=== PATIENT | male | born 2000 | race Caucasian/White ===

== ENCOUNTER 2019-04-26 22:18 | Emergency (ER) | payer OTHER ==
[2019-04-26] MEDS ORDERED: Ibuprofen 800 MG Tab PO ONE (22:55)
[2019-04-26] MEDS ORDERED: Gabapentin 100 MG Cap PO ONE (22:55)
--- NOTE | 2019-04-26 22:58 | EDM.PDOC ---
ED HPI GENERAL MEDICAL PROBLEM - General Chief Complaint: Back Pain or Injury Stated Complaint: BACK AND LEG PAIN NERVE DAMAGE FROM PREVIOUS SURGE Time Seen by Provider: 04/26/19 22:38 Source of Information: Reports: Patient History Limitations: Reports: No Limitations - History of Present Illness INITIAL COMMENTS - FREE TEXT/NARRATIVE: 18 y/o M with hx prior back injury as a child with subsequent lumbar fusion presents with low back pain radiating to his legs. States he gets similar episodes occasionally but they usually pass within a few days. This time around he's had pain for about 5 days. He's been taking APAP for pain with no relief. He also states he had a large leftover supply of narcotics after his surgery which he had been using intermittently for severe pain, but is now recently out of these meds. Denies daily use. Pain is mid low back and radiates to his legs. It is the radiating pain that bothers him the most, keeps him up at night. Not positional. No weakness or numbness. Pain is currently moderate. No recent trauma, no recent illness, no fever, working here in [place] [employer] and doesn't have a PCP. Bilateral Leg Pain Score (Numeric/FACES): 8 - Related Data Allergies Allergy/AdvReac Type Severity Reaction Status Date / Time Penicillins Allergy Airway Verified 04/26/19 22:36 Tightness plastics Allergy Burning Uncoded 04/26/19 22:37 Home Meds: Home Meds Gabapentin [Neurontin] 100 mg PO TID #60 cap 04/26/19 [Rx] Ibuprofen 800 mg PO TID PRN #40 tablet 04/26/19 [Rx] Past Medical History Musculoskeletal History: Reports: Other (See Below) Other Musculoskeletal History: back surgery - Past Surgical History GI Surgical History: Reports: Appendectomy Other GI Surgeries/Procedures: ruptured appy Social & Family History - Tobacco Use Smoking Status *Q: Current Every Day Smoker Years of Tobacco use: 2 Packs/Tins Daily: 0.2 - Caffeine Use Caffeine Use: Reports: None - Recreational Drug Use Recreational Drug Use: No ED ROS GENERAL - Review of Systems Review Of Systems: See Below Constitutional: Denies: Fever HEENT: Reports: No Symptoms Respiratory: Reports: No Symptoms Cardiovascular: Reports: No Symptoms GI/Abdominal: Reports: No Symptoms Musculoskeletal: Reports: Back Pain Neurological: Reports: No Symptoms Psychiatric: Reports: No Symptoms ED EXAM,LOWER BACK PAIN/INJURY - Physical Exam Exam: See Below Exam Limited By: No Limitations General Appearance: Alert, WD/WN, No Apparent Distress Eye Exam: Bilateral Eye: Normal Inspection Throat/Mouth: Normal Inspection Head: Atraumatic, Normocephalic Neck: Normal Inspection, Supple Respiratory/Chest: No Respiratory Distress, Lungs Clear, Normal Breath Sounds Cardiovascular: Normal Peripheral Pulses, Regular Rate, Rhythm, No Edema Back Exam: Vertebral Tenderness (mild, mid L spine, no step offs or deformities) . No: Paraspinal Tenderness Extremities: Normal Inspection, Normal Range of Motion Neurological: Alert, Normal Mood/Affect, Normal Dorsiflexion, Normal Plantar Flexion, Normal Gait, No Motor/Sensory Deficits, Oriented x 3 Psychiatric: Normal Affect, Normal Mood Skin Exam: Warm, Dry, Intact, Normal Color Course - Vital Signs Last Recorded V/S: Last Vital Signs Temp 36.3 C 04/26/19 22:41 Pulse 88 04/26/19 22:41 Resp 20 04/26/19 22:41 BP 137/87 04/26/19 22:41 Pulse Ox 99 04/26/19 22:41 - Orders/Labs/Meds Meds: Medications Discontinued Medications Generic Name Dose Route Start Last Admin Trade Name Karl PRN Reason Stop Dose Admin Gabapentin 100 mg 04/26/19 22:55 04/26/19 23:04 Neurontin PO 04/26/19 22:56 100 mg ONETIME ONE Administration Ibuprofen 800 mg 04/26/19 22:55 04/26/19 23:04 Motrin PO 04/26/19 22:56 800 mg ONETIME ONE Administration - Re-Assessments/Exams Free Text/Narrative Re-Assessment/Exam: 04/26/19 23:10 Will start gabapentin given his report of frequent episodes of "nerve pain" since his back surgery with radicular sounding pain. Discussed use of APAP/ ibuprofen and narcotic avoidance. He is comfortable with this plan. Encouraged him to f/u with a local PCP. Departure - Departure Time of Disposition: 22:56 Disposition: Home, Self-Care 01 Clinical Impression: Low back pain Qualifiers: Chronicity: acute Back pain laterality: bilateral Sciatica presence: with sciatica Sciatica laterality: bilateral sciatica Qualified Code(s): M54.42 - Lumbago with sciatica, left side - Discharge Information Prescriptions: Gabapentin [Neurontin] 100 mg PO TID #60 cap Ibuprofen 800 mg PO TID PRN #40 tablet PRN Reason: Pain Instructions: Chronic Back Pain, [id number] Referrals: PCP,None [Primary Care Provider] - Forms: ED Department Discharge Additional Instructions: 1. Continue to take acetaminophen according to bottle directions for pain. In addition, take ibuprofen as prescribed. 2. Take gabapentin as prescribed for nerve pain. 3. Follow up with a primary care provider as soon as possible for further care. Call [phone] if you'd like to schedule with a provider here.
== END 2019-04-26 23:12 | disposition home or self-care (01) ==
LOC: JD.ED 22:18
DX: M54.41 Lumbago with sciatica, right side (principal); M54.42 Lumbago with sciatica, left side; F17.200 Nicotine dependence, unspecified, uncomplicated; Z88.0 Allergy status to penicillin; Z91.048 Other nonmedicinal substance allergy status
CPT/HCPCS: 99283; A9270

== ENCOUNTER 2019-07-26 22:09 | Emergency (ER) | payer OTHER ==
--- NOTE | 2019-07-26 22:57 | EDM.PDOC ---
ED HPI GENERAL MEDICAL PROBLEM - General Chief Complaint: Gastrointestinal Problem Stated Complaint: abdominal pain Time Seen by Provider: 07/26/19 22:56 - History of Present Illness INITIAL COMMENTS - FREE TEXT/NARRATIVE: 19-year-old male presents the emergency room with nausea and generally not feeling well. This started on 16 July he had a cough this is improving with an albuterol MDI now he has persistent nausea but no significant vomiting. He was seen in emergency room in [place] given some medications that he had an allergic reaction to. However he is continue to use the albuterol and this seems to help. He is struggling to keep fluids down. Does not really have any abdominal pain. His cough over time is improving. Past medical history noncontributory. He has not vomited in a while but has pretty significant nausea. - Related Data Allergies Allergy/AdvReac Type Severity Reaction Status Date / Time Penicillins Allergy Airway Verified 04/26/19 22:36 Tightness plastics Allergy Burning Uncoded 04/26/19 22:37 tessalon pearls Allergy Difficulty Uncoded 07/26/19 22:21 Breathing Home Meds: Home Meds Ondansetron [Zofran ODT] 4 mg PO Q6H PRN #10 tab.dis 07/26/19 [Rx] Past Medical History Musculoskeletal History: Reports: Other (See Below) Other Musculoskeletal History: back surgery - Past Surgical History HEENT Surgical History: Reports: Tonsillectomy GI Surgical History: Reports: Appendectomy Other GI Surgeries/Procedures: ruptured appy Social & Family History - Tobacco Use Smoking Status *Q: Former Smoker Years of Tobacco use: 1 Packs/Tins Daily: 0.1 Used Tobacco, but Quit: Yes Month/Year Tobacco Last Used: 08/11 Second Hand Smoke Exposure: No - Caffeine Use Caffeine Use: Reports: Soda, Tea - Recreational Drug Use Recreational Drug Use: No ED ROS GENERAL - Review of Systems Review Of Systems: See Below Constitutional: Reports: No Symptoms HEENT: Reports: No Symptoms Respiratory: Reports: Cough (Is improving) Cardiovascular: Reports: No Symptoms Endocrine: Reports: No Symptoms GI/Abdominal: Reports: Nausea. Denies: Constipation, Diarrhea : Reports: No Symptoms Musculoskeletal: Reports: No Symptoms Skin: Reports: No Symptoms Neurological: Reports: No Symptoms Psychiatric: Reports: No Symptoms ED EXAM, GI/ABD - Physical Exam Exam: See Below Exam Limited By: No Limitations General Appearance: Alert, No Apparent Distress Head: Atraumatic, Normocephalic Neck: Normal Inspection, Supple, Non-Tender, Full Range of Motion. No: Lymphadenopathy (L), Lymphadenopathy (R) Respiratory/Chest: No Respiratory Distress, Lungs Clear, Normal Breath Sounds Cardiovascular: Regular Rate, Rhythm, No Edema, No Murmur GI/Abdominal Exam: Normal Bowel Sounds, Soft, Non-Tender Back Exam: Normal Inspection. No: CVA Tenderness (L), CVA Tenderness (R) Neurological: Alert, Oriented, Inattentive Course - Vital Signs Last Recorded V/S: Last Vital Signs Temp 36.4 C 07/26/19 22:22 Pulse 86 07/26/19 22:22 Resp 18 07/26/19 22:22 BP 116/80 07/26/19 22:22 Pulse Ox 98 07/26/19 22:22 - Orders/Labs/Meds Meds: Medications Discontinued Medications Generic Name Dose Route Start Last Admin Trade Name Freq PRN Reason Stop Dose Admin Ondansetron HCl 4 mg 07/26/19 23:16 07/26/19 23:39 Zofran Odt PO 07/26/19 23:17 4 mg ONETIME ONE Administration - Re-Assessments/Exams Free Text/Narrative Re-Assessment/Exam: 07/27/19 00:23 Doing much better with the Zofran he would like to go home and this is reasonable. Departure - Departure Time of Disposition: 00:23 Disposition: Home, Self-Care 01 Clinical Impression: Nausea, Gastroenteritis - Discharge Information Prescriptions: Ondansetron [Zofran ODT] 4 mg PO Q6H PRN #10 tab.dis PRN Reason: Nausea/Vomiting Referrals: PCP,None [Primary Care Provider] - Forms: ED Department Discharge, ED Return to Work/School Form Additional Instructions: Turn to the emergency room with any questions problems or worsening symptoms. Use the nausea medication 1 every 6 hours as needed for nausea. Push lots of fluids for the next 24 hours then slowly advance diet as tolerated. Continue to use your albuterol inhaler. In the hospital clinic early next week if needed for [phone] Sepsis Event Note - Evaluation Sepsis Screening Result: No Definite Risk - Focused Exam Vital Signs: Vital Signs Temp Pulse Resp BP Pulse Ox 07/26/19 22:22 36.4 C 86 18 116/80 98 Date Exam was Performed: 07/27/19 Time Exam was Performed: 00:23
[2019-07-26] MEDS ORDERED: Ondansetron 4 MG Tab.DIS PO ONE (23:16)
== END 2019-07-27 00:30 | disposition home or self-care (01) ==
LOC: JD.ED 22:09
DX: K52.9 Noninfective gastroenteritis and colitis, unspecified (principal); Z98.890 Other specified postprocedural states; Z90.49 Acquired absence of other specified parts of digestive tract; Z87.891 Personal history of nicotine dependence; Z88.0 Allergy status to penicillin; Z91.09 Other allergy status, other than to drugs and biological substances
CPT/HCPCS: 87804; 99284; A9270; 99283